=== PATIENT | male | born 1955 | race Hispanic/Latino ===

== ENCOUNTER 2021-08-26 05:51 | Day surgery (SDC) | payer BC ==
[2021-08-21 12:35] LABS: BASOPHILS % (AUTO) 0.2 % (0.0-5.0); HEMATOCRIT 45.5 % (42-54); LYMPHOCYTES % (AUTO) 22.7 % (21.0-51.0); MEAN CORPUSCULAR HEMOGLOBIN 31.7 pg (27.0-33.0); MEAN CORPUSCULAR HGB CONC 33.4 g/dL (32.0-36.0); MEAN CORPUSCULAR VOLUME 94.8 fL (79-99); MONOCYTES % (AUTO) 6.6 % (3.0-13.0); NEUTROPHILS % (AUTO) 68.2 % (40.0-77.0); PLATELET COUNT (AUTO) 239 K/uL (130-400); RED CELL DISTRIBUTION WIDTH 13.3 % (11.0-15.5); WHITE BLOOD COUNT (AUTO) 8.8 K/uL (4.8-10.8)
[2021-08-21 12:46] LABS: INR 1.1 (0.85-1.15); PROTHROMBIN TIME 11.9 SEC (9.6-11.6)
[2021-08-21 12:47] LABS: PARTIAL THROMBOPLASTIN TIME 27.3 SEC (26.3-35.5)
[2021-08-21 12:48] LABS: ALBUMIN 3.9 g/dL (3.5-5.0); BILIRUBIN,TOTAL 0.6 mg/dL (0.2-1.0); CREATININE 1.1 mg/dL (0.5-1.5); POTASSIUM 3.6 mmol/L (3.5-5.1); TOTAL PROTEIN, SERUM 7.7 g/dL (6.0-8.3)
[2021-08-25 14:46] VITALS: BP 168/83
[2021-08-26] VITALS (16 sets, daily range): BP systolic 118–152; BP diastolic 65–96
[~2021-08-26] VITALS: Ht 177.8 cm; Wt 130.8 kg
[~2021-08-26 05:51] MED LIST: LISI1TAB51 PO; MEPERIDINE-PF 25 MG/ML SYG ONE; ROSU10TA28 PO; SILD20TA14 PO
[2021-08-26] MEDS ORDERED: LACTATED RINGERS 1000ML 1,000 ML IV ONE (06:28)
[2021-08-26] MEDS ORDERED: SUCCINYLCHOLINE CHLORIDE 20 MG/ML 10 ML VIAL ONE (07:34)
[2021-08-26] MEDS ORDERED: LIDOCAINE PF 100MG/5ML (2%) SYRINGE 5ML ONE (07:34)
[2021-08-26] MEDS ORDERED: ROCURONIUM 10MG/1ML SYR 10 MG/ML ML ONE ×2 (07:35→08:11)
[2021-08-26] MEDS ORDERED: FENTANYL CITRATE PF 50 MCG/1 ML 2ML VIAL ONE (07:35)
[2021-08-26] MEDS ORDERED: PROPOFOL 10 MG/ML 20ML VIAL IV ONE ×2 (07:35→09:32)
[2021-08-26] MEDS ORDERED: MIDAZOLAM HCL 1 MG/ML 2ML VIAL ONE ×2 (07:35→09:49)
[2021-08-26] MEDS ORDERED: BUPIVACAINE/PF 0.25% 30ML VIAL IJ ONE (07:56)
[2021-08-26] MEDS ORDERED: CEFAZOLIN SODIUM 1 GM VIAL ONE (07:56)
[2021-08-26] MEDS ORDERED: NEOSTIGMINE 5MG/5ML SYR IV ONE (09:38)
[2021-08-26] MEDS ORDERED: GLYCOPYRROLATE 1 MG/5 ML SYRINGE ONE (09:38)
[2021-08-26] MEDS ORDERED: IPRATROPIUM/ALBUTEROL SULFATE 3 ML SOLUTION IH ONE (10:00)
== END 2021-08-26 11:45 | disposition home or self-care (01) ==
LOC: DAH 05:51
PROVIDERS: ATTEND Urology Pediatric Urology
DX: N43.2 Other hydrocele (principal); Z20.822 Contact with and (suspected) exposure to COVID-19; I10 Essential (primary) hypertension; E66.01 Morbid (severe) obesity due to excess calories; K40.90 Unilateral inguinal hernia, without obstruction or gangrene, not specified as recurrent; Z79.01 Long term (current) use of anticoagulants; Z79.899 Other long term (current) drug therapy; Z68.41 Body mass index [BMI] 40.0-44.9, adult
CPT/HCPCS: 36415; 55040; 71045; 80053; 85025; 85610; 85730; 87088; 87635; 93005; 94640; A4216; A4223; A4606; A4663; A6260; C9803; G0168; J0330; J0690; J2001; J2250 ×2; J2704 ×2; J2710; J3010; J3490 ×2; J7030; J7120; J2175